=== PATIENT | male | born 1990 | race Caucasian/White ===

== ENCOUNTER 2017-03-12 11:31 | Emergency (ER) | payer MEDICARE, MEDICAID ==
--- NOTE | 2017-03-12 12:57 | C.PDOC ---
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 Pt states he was using a box coverer hand and accidentally cut himself. Tetanus last updated 12/2016. Pt initially seen at [facility], they covered the wound and sent patient to ED. Denies numbness, weakness or any other complaints. (Carmel Rodriguez) <Melissa Clancy - Last Filed: 03/12/17 12:57> History Per: Patient History/Exam Limitations: no limitations Onset/Duration Of Symptoms: Hrs Current Symptoms Are (Timing): Still Present Severity: Moderate Recent travel outside of the [place]: No <Carmel Rodriguez - Last Filed: 03/12/17 15:23> Time Seen by Provider: 03/12/17 12:39 Chief Complaint (Nursing): Upper Extremity Problem/Injury Past Medical History Reviewed: Historical Data, Nursing Documentation, Vital Signs Family History: States: Unknown Family Hx - Social History Hx Alcohol Use: Yes Hx Substance Use: No - Immunization History Hx Tetanus Toxoid Vaccination: Yes Hx Influenza Vaccination: No Hx Pneumococcal Vaccination: No <Carmel Rodriguez - Last Filed: 03/12/17 15:23> Vital Signs: Last Vital Signs Temp 98.0 F 03/12/17 14:52 Pulse 88 03/12/17 14:52 Resp 18 03/12/17 14:52 BP 144/90 03/12/17 14:52 Pulse Ox 100 03/12/17 14:52 Review Of Systems Skin: Positive for: Other (laceration to left forearm) Neurological: Negative for: Weakness, Numbness <Carmel Rodriguez - Last Filed: 03/12/17 15:23> Physical Exam - Physical Exam Appears: Non-toxic, No Acute Distress Skin: Warm, Dry Head: Atraumatic, Normacephalic Extremity: Normal ROM (Except for right 4th finger, decreased ROM on flexion, muscle bulges, associated severe pain), Capillary Refill (<2 seconds), Other ( 2.5 cm laceration to mid left volar forearm) Pulses: Left Radial: Normal Neurological/Psych: Oriented x3, Normal Speech, Normal Cognition, No Normal Motor (decreased strength to right 4th finger, rest normal.), Normal Sensation <Carmel Rodriguez - Last Filed: 03/12/17 15:23> ED Course And Treatment O2 Sat by Pulse Oximetry: 99 (room air) Pulse Ox Interpretation: Normal Progress Note: Dr Clancy evaluated patient at bedside, advised consult with hand. Spoke to Dr Funes hand specialist, instructed irrgateion of wound and to close tightly, give keflex and will see patient in office. Advised not to splint but apply JAZ wrap. If after 3 weeks weakness doesn't improve, he will perform exploratory surgery. <Carmel Rodriguez - Last Filed: 03/12/17 15:23> Supervising Attending Note - Supervising Attending Note The Documented history was done by the: Physician Necktie Stitcher The documented physical exam was done by the: Physician Necktie Stitcher The documented procedures were done by the: Physician Necktie Stitcher - Attestation: I have personally seen and examined this patient.: Yes I have fully participated in the care of the patient.: Yes I have reviewed all pertinent clinical information, including history, physical exam and plan: Yes <Melissa Clancy - Last Filed: 03/12/17 12:57> <Carmel Rodriguez - Last Filed: 03/12/17 15:23> - Notes: Notes:: L FOREARM LAC ONSET PATIENT CARE DIRECTOR. PAIN WHEN FLEXES 4 AND 5 FINGER, ?WEAKNESS VS DUE TO PAIN. VSS EXAM ABOVE. LOOSE LAC REPAIR, D/W HAND SURG (Melissa Clancy) Procedure: Wound Repair - Time Out Time Out: Side verified, Site verified, Patient ID confirmed, Sterile procedures obs. - Consent Obtained Consent obtained: Verbal - Performed by Performed by: Mid-level Provider - Indications Indication(s):: Laceration - Location Location:: Left, Forearm Dimensions Length cm: 2.5 Depth:: Subcutaneous fascia - Anesthetic Technique Anesthetic Technique: Local Local/Regional Anesthetic:: Lidocaine 2% w/epi - Debris Debris:: None - Irrigated Irrigated with ml of normal saline: 1000 - Complexity Complexity:: Intermediate (2 layer) - Wound repair method Sutures:: # (5), Size (3), Type (nylon), Technique (interupted) - Muscle repiar layer closed with Muscle repair layer closed with:: # (3), Size (4-0), Type (vicril), Technique ( interupted), Wound well approximated, Abx ointment applied, Dressing applied, Tetanus up to date - Patient tolerated procedure Patient Tolerated Procedure:: Well <Carmel Rodriguez - Last Filed: 03/12/17 15:23> Disposition <Melissa Clancy - Last Filed: 03/12/17 12:57> Counseled Patient/Family Regarding: Studies Performed, Diagnosis, Need For Followup, Rx Given - Disposition Disposition Time: 14:46 <Carmel Rodriguez - Last Filed: 03/12/17 15:23> - Disposition Referrals: Kush Funes MD [Staff Provider] - [employer] [facility] [Outside] Disposition: HOME/ ROUTINE Condition: STABLE Additional Instructions: Follow up with Hand specialist within 2-3 days without fail. Return to ED immediately if feel worse. Suture removal in 10 days. Prescriptions: Bacitracin OINT 1 applic TP TID #45 g Cephalexin [cephalexin] 500 mg PO Q6 #28 cap oxyCODONE/Acetaminophen [Percocet 5/325 mg Tab] 1 tab PO QID PRN #20 tab PRN Reason: Pain Instructions: Care For Your Stitches (ED), Laceration (ED) Forms: [employer] (Bengali), Work Excuse - Clinical Impression Clinical Impression: Laceration of forearm, left <Melissa Clancy - Last Filed: 03/12/17 12:57> - PA / TRADING ANALYST / Resident Statement MD/DO has reviewed & agrees with the documentation as recorded. - Scribe Statement The provider has reviewed the documentation as recorded by the Scribe <Carmel Rodriguez - Last Filed: 03/12/17 15:23> - Scribe Statement Krunal degroot All medical record entries made by the Scribe were at my direction and personally dictated by me. I have reviewed the chart and agree that the record accurately reflects my personal performance of the history, physical exam, medical decision making, and the department course for this patient. I have also personally directed, reviewed, and agree with the discharge instructions and disposition. (Carmel Rodriguez)
[2017-03-12] MEDS ORDERED: Oxycodone/Acetaminophen 5/325 mg Tab PO STA (13:08)
[2017-03-12] MEDS ORDERED: Bacitracin 500 Units/gm Oint Foilpak UD TOP STA (13:08)
[2017-03-12] MEDS ORDERED: Bacitracin 500 Units/gm Oint Foilpak UD ONE (13:16)
[2017-03-12] MEDS ORDERED: Oxycodone/Acetaminophen 5/325 mg Tab ONE (13:16)
[2017-03-12 14:55] VITALS: BP 144/90; PULSE 88; RESP 18; TEMP 98
[2017-03-12 15:21] VITALS: O2SAT 99
== END 2017-03-12 15:02 | disposition home or self-care (01) ==
LOC: C.ER 11:31
DX: S51.812A Laceration without foreign body of left forearm, initial encounter (principal); W45.8XXA Other foreign body or object entering through skin, initial encounter

== ENCOUNTER 2018-07-10 02:09 | Emergency (ER) | payer MEDICAID, MEDICARE ==
[2018-07-10 02:14] VITALS: BP 141/81; PULSE 95; RESP 20; TEMP 98.6; O2SAT 100
[2018-07-10] MEDS ORDERED: Bacitracin 500 Units/gm Oint Foilpak UD TOP ONE (02:34)
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
[2018-07-10] MEDS ORDERED: Bacitracin 500 Units/gm Oint Foilpak UD ONE (02:44)
== END 2018-07-10 02:49 ==
LOC: C.ER 02:09
DX: Z02.89 Encounter for other administrative examinations (principal)

== ENCOUNTER 2018-07-14 22:55 | Emergency (ER) | payer MEDICARE ==
[2018-07-14 23:56] LABS: HEMOGLOBIN 14.7 g/dL (12.0-18.0); RED CELL DISTRIBUTION WIDTH 12.7 % (11.5-14.5)
[2018-07-14 23:57] LABS: SQUAMOUS EPITHIAL < 1 /hpf (0-5); URINE BILIRUBIN NEGATIVE (NEGATIVE); URINE BLOOD NEGATIVE (NEGATIVE); URINE CLARITY Clear (Clear); URINE COLOR Yellow (YELLOW); URINE GLUCOSE (UA) NORMAL (Normal); URINE LEUKOCYTE ESTERASE NEG Leu/uL (Negative); URINE PROTEIN NEGATIVE (NEGATIVE)
[2018-07-15] LABS: BASO # 0.1 K/uL (0.0-0.2); BASO % 0.8 % (0.0-2.0); EOS # 0.1 K/uL (0.0-0.7); EOS % 0.5 % (0.0-4.0); LYMPH # 1.7 K/uL (1.0-4.3); LYMPH % 15.7 % (20.0-40.0); MEAN CELL VOLUME 93.9 fL (80.0-94.0); MEAN CORPUSCULAR HEMOGLOBIN 32.9 pg (27.0-31.0); MEAN CORPUSCULAR HGB CONC 35.1 g/dL (33.0-37.0); MEAN PLATELET VOLUME 11.2 fL (7.2-11.7); MONO # 1.2 K/uL (0.0-0.8); MONO % 11.3 % (0.0-10.0); NEUT # 7.8 K/uL (1.8-7.0); NEUT % 71.7 % (50.0-75.0); RBC 4.46 Mil/uL (4.40-5.90); WHITE BLOOD COUNT 10.9 K/uL (4.8-10.8)
[2018-07-15 00:05] LABS: ACETAMINOPHEN < 10.0 ug/mL (10.0-30.0); SALICYLATE < 1.0 mg/dL 1
[2018-07-15 00:07] LABS: ALB/GLOB RATIO 1.6 (1.0-2.1); ALBUMIN 4.6 g/dL (3.5-5.0); ALT/SGPT 86 U/L (21-72); AST/SGOT 51 U/L (17-59); BLOOD UREA NITROGEN 15 mg/dL (9-20); CALCIUM 9.4 mg/dl (8.6-10.4); GFR NON-AFRICAN AMERICAN > 60
--- NOTE | 2018-07-15 00:13 | C.PDOC ---
Time Seen by Provider: 07/15/18 00:09 Chief Complaint (Nursing): Psychiatric Evaluation Past Medical History Vital Signs: Last Vital Signs Temp 98.1 F 07/14/18 22:56 Pulse 106 H 07/14/18 22:56 Resp 20 07/14/18 22:56 BP 149/92 H 07/14/18 22:56 Pulse Ox 97 07/14/18 22:56 - Medical History PMH: Anxiety, Bipolar Disorder, Depression, Schizophrenia Family History: States: Unknown Family Hx - Social History Hx Alcohol Use: Yes Hx Substance Use: No - Immunization History Hx Tetanus Toxoid Vaccination: Yes Hx Influenza Vaccination: No Hx Pneumococcal Vaccination: No ED Course And Treatment - Laboratory Results Result Diagrams: 07/14/18 23:51 07/14/18 23:51 O2 Sat by Pulse Oximetry: 97 Disposition Counseled Patient/Family Regarding: Studies Performed, Diagnosis - Disposition Disposition Time: 00:13
[2018-07-15 00:15] LABS: BARBITURATES, UR NEGATIVE (NEGATIVE); BENZODIAZEPINES, UR NEGATIVE (NEGATIVE); OPIATES, UR NEGATIVE (NEGATIVE)
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
[2018-07-15 00:21] LABS: PHENCYCLIDINE, UR POSITIVE (NEGATIVE)
[2018-07-15 02:51] VITALS: RESP 18
[2018-07-15 05:32] VITALS: BP 143/83; PULSE 86; TEMP 98.4; O2SAT 100
--- NOTE | 2018-07-15 09:07 | CT ---
Date of service: 07/15/2018 PROCEDURE: CT HEAD WITHOUT CONTRAST. HISTORY: head injury COMPARISON: None available. TECHNIQUE: Axial computed tomography images were obtained through the head/brain without intravenous contrast. Radiation dose: Total exam DLP = 1169.79 mGy-cm. This CT exam was performed using one or more of the following dose reduction techniques: Automated exposure control, adjustment of the mA and/or kV according to patient size, and/or use of iterative reconstruction technique. FINDINGS: HEMORRHAGE: No intracranial hemorrhage. BRAIN: No mass effect or edema. No atrophy or chronic microvascular ischemic changes. VENTRICLES: Unremarkable. No hydrocephalus. Prominent cisterna magna. CALVARIUM: Unremarkable. PARANASAL SINUSES: Unremarkable as visualized. No significant inflammatory changes. MASTOID AIR CELLS: Unremarkable as visualized. No inflammatory changes. OTHER FINDINGS: None. IMPRESSION: No acute intracranial abnormality. Prominent cisterna magna. If symptoms persists, consider correlation with MRI. A preliminary report was generated at 1:30 a.m. on 07/15/[address] Stacy Cornelius from [employer].
== END 2018-07-15 05:41 | disposition home or self-care (01) ==
LOC: C.ER 22:55
DX: F19.10 Other psychoactive substance abuse, uncomplicated (principal); F25.9 Schizoaffective disorder, unspecified; F32.9 Major depressive disorder, single episode, unspecified
CPT/HCPCS: 70450; 80053; 81001; 83735; 84100; 85025; 99284; G0480

== ENCOUNTER 2018-08-17 10:06 | Emergency (ER) | payer MEDICARE, OTHER ==
[2018-08-17 10:28] VITALS: BP 159/98; PULSE 105; TEMP 98.5; O2SAT 95
[2018-08-17 10:34] LABS: BASO % 0.7 % (0.0-2.0); EOS # 0.1 K/uL (0.0-0.7); EOS % 1.2 % (0.0-4.0); HEMOGLOBIN 14.1 g/dL (12.0-18.0); LYMPH # 1.2 K/uL (1.0-4.3); LYMPH % 19.7 % (20.0-40.0); MEAN CELL VOLUME 95.4 fL (80.0-94.0); MEAN CORPUSCULAR HEMOGLOBIN 31.7 pg (27.0-31.0); MEAN CORPUSCULAR HGB CONC 33.3 g/dL (33.0-37.0); MONO # 0.8 K/uL (0.0-0.8); MONO % 12.6 % (0.0-10.0); NEUT # 4.1 K/uL (1.8-7.0); NEUT % 65.8 % (50.0-75.0); NRBC % 0.1 % (0.0-2.0); RBC 4.44 Mil/uL (4.40-5.90); RED CELL DISTRIBUTION WIDTH 12.6 % (11.5-14.5); WHITE BLOOD COUNT 6.2 K/uL (4.8-10.8)
[2018-08-17 10:35] LABS: URINE BILIRUBIN NEGATIVE (NEGATIVE); URINE BLOOD NEGATIVE (NEGATIVE); URINE CLARITY Clear (Clear); URINE COLOR Yellow (YELLOW); URINE GLUCOSE (UA) NORMAL (Normal); URINE LEUKOCYTE ESTERASE NEG Leu/uL (Negative); URINE PROTEIN NEGATIVE (NEGATIVE)
[2018-08-17 10:46] LABS: ALB/GLOB RATIO 1.5 (1.0-2.1); ALBUMIN 4.3 g/dL (3.5-5.0); ALT/SGPT 46 U/L (21-72); AST/SGOT 45 U/L (17-59); BLOOD UREA NITROGEN 11 mg/dL (9-20); CALCIUM 8.8 mg/dl (8.6-10.4); GFR NON-AFRICAN AMERICAN > 60
[2018-08-17 10:54] LABS: BARBITURATES, UR NEGATIVE (NEGATIVE); BENZODIAZEPINES, UR NEGATIVE (NEGATIVE); OPIATES, UR NEGATIVE (NEGATIVE); PHENCYCLIDINE, UR NEGATIVE (NEGATIVE)
--- NOTE | 2018-08-17 14:37 | C.PDOC ---
History Of Present Illness 28 y/o male presents to the ER complaining of suicidal ideation. Patient states that he is thinking about "jumping off a bridge." Patient reports that he has history of depression, he is not taking medications for it. Denies having h omicidal ideation, hallucination, and active physical complaints. Time Seen by Provider: 08/17/18 10:18 Chief Complaint (Nursing): Psychiatric Evaluation History Per: Patient History/Exam Limitations: no limitations Onset/Duration Of Symptoms: Days Current Symptoms Are (Timing): Still Present Past Medical History Reviewed: Historical Data, Nursing Documentation, Vital Signs Vital Signs: Last Vital Signs Temp 98.5 F 08/17/18 10:22 Pulse 105 H 08/17/18 10:22 Resp 18 08/17/18 10:22 BP 159/98 H 08/17/18 10:22 Pulse Ox 95 08/17/18 10:22 - Medical History PMH: Anxiety, Bipolar Disorder, Depression, Schizophrenia, Seizures (Cocaine related) Denies: Diabetes, Hepatitis, HIV, HTN, Sexually Transmitted Disease Other Surgeries: Hx of surgeries Family History: States: No Known Family Hx - Social History Hx Alcohol Use: Yes Hx Substance Use: Yes (marijanna, every day) - Immunization History Hx Tetanus Toxoid Vaccination: Yes Hx Influenza Vaccination: No Hx Pneumococcal Vaccination: No Review Of Systems Except As Marked, All Systems Reviewed And Found Negative. Constitutional: Negative for: Fever, Chills Psych: Positive for: Suicidal ideation Physical Exam - Physical Exam Appears: No Acute Distress Skin: Normal Color, Warm, Dry Head: Atraumatic, Normacephalic Eye(s): bilateral: Normal Inspection Nose: Normal Oral Mucosa: Moist Neck: Supple Chest: Symmetrical Cardiovascular: Rhythm Regular Respiratory: Normal Breath Sounds, No Rales, No Rhonchi, No Wheezing Gastrointestinal/Abdominal: Soft, No Tenderness, No Guarding, No Rebound Extremity: Normal ROM Neurological/Psych: Oriented x3, Normal Speech ED Course And Treatment - Laboratory Results Result Diagrams: 08/17/18 10:28 08/17/18 10:28 O2 Sat by Pulse Oximetry: 95 (RA) Pulse Ox Interpretation: Normal Medical Decision Making Medical Decision Making: Plan: --Labs --UA Updates: Patient has been medically cleared for CRISIS. Progress: Re-eval: no longer suicidal as per crisis. Patient is clear psychiatrically. Disposition - Disposition Referrals: [facility] Samir Zambrano, [Non-Staff] - Disposition: HOME/ ROUTINE Disposition Time: 15:50 Condition: GOOD Additional Instructions: JUSTIN KURTZ, thank you for letting us take care of you today. The emergency medical care you received today was directed at your acute symptoms. If you were prescribed any medication, please fill it and take as directed. It may take several days for your symptoms to resolve. Return to the Emergency Department if your symptoms worsen, do not improve, or if you have any other problems. Please contact your doctor or call one of the physicians/clinics you have been referred to that are listed on the Patient Visit Information form that is included in your discharge packet. Bring any paperwork you were given at [facility] with you along with any medications you are taking to your follow up visit. Our treatment cannot replace ongoing medical care by a primary care provider outside of the emergency department. Thank you for allowing the [facility] team to be part of your care today. Follow up with your primary care doctor this week for re-evaluation and further management. Instructions: Drug Abuse and Drug Addiction (DC), Marijuana Use and Addiction Forms: [employer] (Tongan) - Clinical Impression Clinical Impression: Drug dependence - Scribe Statement The provider has reviewed the documentation as recorded by the Mari Steele Provider Attestation: All medical record entries made by the Vitaliyibe were at my direction and p ersonally dictated by me. I have reviewed the chart and agree that the record accurately reflects my personal performance of the history, physical exam, medical decision making, and the department course for this patient. I have also personally directed, reviewed, and agree with the discharge instructions and disposition.
[2018-08-17 16:15] VITALS: RESP 16
== END 2018-08-17 16:14 | disposition home or self-care (01) ==
LOC: C.ER 10:06
DX: F19.20 Other psychoactive substance dependence, uncomplicated (principal); F20.9 Schizophrenia, unspecified; F31.9 Bipolar disorder, unspecified
CPT/HCPCS: 80053; 81001; 83735; 84100; 85025; 99284; G0480